=== PATIENT | male | born 1955 | race Caucasian/White ===

== ENCOUNTER → 2016-12-17 | Outpatient (CLI) | payer OTHER ==
--- NOTE | 2016-12-17 10:22 | MR ---
EXAMINATION TYPE: MR shoulder RT wo con DATE OF EXAM: 12/17/2016 10:07 AM COMPARISON: NONE HISTORY: Right shoulder pain TECHNIQUE: Multiplanar, multisequence imaging of the right shoulder is performed without contrast. FINDINGS: Rotator Cuff: Increased signal is present within the rotator cuff tendon compatible with tendinosis, no inder rotator cuff tear is evident, difficult to exclude a partial thickness tear along the hand bander ior margin, some fluid signal is present near the insertion. Fluid signal present in the subacromial subdeltoid bursa. Acromioclavicular Joint: Hypertrophic and degenerative change is present causing some mass effect on the musculotendinous junction of supraspinatus. Glenohumeral Joint: Some mild spurring is present at the humeral head. Subchondral geodes are present at the inferior bony labrum. Suspect some chondromalacia changes, grade 2 to grade 3. Labrum: There is a linear increased signal along the anterior labrum, superior labrum shows some diff use increased signal, cystic focus present along the anterior margin of the bony labrum inferiorly ma y represent a para labral cyst. Some heterogeneous signal is associated with a cystic focus. Biceps Tendon: Long head of biceps tendon shows fluid signal along its course. It shows a normal posi tion. Bone marrow signal: Otherwise unremarkable. Other: Distal acromial spur is suspected. IMPRESSION: Findings suspicious for labral tear. Partial thickness tear suspected along the posterior insertion o f the infraspinatus tendon. Correlate for impingement. Joint effusion. Possible para labral cyst, dif ficult to exclude small loose bodies.
== END | disposition home or self-care (01) ==
LOC: RADMRIMAIN 09:33
PROVIDERS: ATTEND Family Medicine
DX: M25.411 Effusion, right shoulder (principal)

== ENCOUNTER 2017-02-06 06:56 | Day surgery (SDC) | payer OTHER ==
[2017-02-03 16:59] VITALS: BMI 29.7
--- NOTE | 2017-02-05 16:18 | HP ---
DATE OF ADMISSION: Yury Knott is a 61-year-old patient seen with progressive right shoulder pain. After having treatment options discussed, he elected to proceed with the right shoulder arthroscopy. Consent was obtained. Medical clearance by Dr. Jean. Past medical history is hyperlipidemia, hypertension. Past surgical history is right total knee arthroplasty, left shoulder arthroscopy. DAILY MEDICATIONS: Amlodipine, lisinopril, metoprolol. ALLERGIES: None reported. SOCIAL HISTORY: Patient currently smokes cigarettes. PHYSICAL EVALUATION OF RIGHT SHOULDER: Flexion is 90 degrees, abduction 60 degrees, external rotation is 50 degrees with some pain and weakness. He has tenderness along the anterolateral acromion rotator cuff insertion. Impingement positive at 90 degrees. Drop arm sign positive. Distal neurovascular exam is intact. Radiographs of the right shoulder revealed a type II anterior acromion, cystic changes of the tuberosity. An MRI of the right shoulder revealed impingement and along with partial rotator cuff tear and labral tear. IMPRESSION: Right shoulder impingement with partial rotator cuff tear and labral tear. PLAN: Right shoulder arthroscopy, subacromial decompression, possible arthroscopic rotator cuff repair, and debridement.
[~2017-02-06 06:56] MED LIST: DEXAMETHASONE SOD PHOSPHATE 10 MG/ML 1 ML VIAL IV ONE; LACTATED RINGERS 1,000 ML IV SCH; LIDOCAINE 1% 20 ML VIAL (10MG/ML) FOR IV START INTRADERMA PRN; MIDAZOLAM 2 MG/2 ML VIAL IV PRN; ONDANSETRON 4 MG/2 ML VIAL IVP ONE; SCOPOLAMINE 1.5MG/72HR PATCH TRANSDERM ONE; ceFAZolin 2 GM in SODIUM CHLORIDE 0.9% 100 ML IVPB ONE
[2017-02-06 08:09] VITALS: RESP 16
[2017-02-06] MEDS ORDERED: ROPIVACAINE 5 MG/ML 30 ML VIAL ONE (09:13)
[2017-02-06] MEDS ORDERED: PROPOFOL 10 MG/ML 20 ML VIAL IV ONE (09:13)
[2017-02-06] MEDS ORDERED: SUCCINYLCHOLINE CHLORIDE 100 MG/5 ML SYR IV ONE (09:13)
[2017-02-06] MEDS ORDERED: LIDOCAINE 2%-EPI 1:100,000 20 ML VIAL ONE (09:13)
[2017-02-06] MEDS ORDERED: PHENYLEPHRINE-0.9% NACL SYG 1 MG/10 ML SYRINGE ONE (09:13)
[2017-02-06] MEDS ORDERED: LIDOCAINE 1% INJ 10MG/ML (20 ML MDV) ONE (09:13)
[2017-02-06] MEDS ORDERED: MIDAZOLAM 2 MG/2 ML VIAL ONE (09:13)
[2017-02-06] MEDS ORDERED: fentaNYL (PF) 50 MCG/ML 2 ML AMP ONE (09:13)
[2017-02-06] MEDS ORDERED: ePHEDrine 50 MG/ML 1 ML AMP ONE (09:13)
[2017-02-06] MEDS ORDERED: LACTATED RINGERS 1,000 ML IV ONE (10:38)
[2017-02-06 10:47] VITALS: TEMP 97.3
--- NOTE | 2017-02-06 10:50 | P.OP ---
Date of Procedure: 02/06/17 Preoperative Diagnosis: Right shoulder impingement Postoperative Diagnosis: 1. Right shoulder partial rotator cuff tear 2. Right shoulder impingement 3. Right shoulder partial biceps tendon tear 4. Right shoulder superficial labral tear 5. 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 Right shoulder arthroscopic debridement superficial rotator cuff tear 2. Right shoulder arthroscopic subacromial decompression 3. Right shoulder arthroscopic biceps tenotomy 4. Right shoulder arthroscopic debridement labral tear 5. Right shoulder arthroscopic chondroplasty humeral head and glenoid Anesthesia: GETA, regional (Interscalene block) Surgeon: Rivera Zelaya Animal Rides Manager #1: Aubrey Pichardo Estimated Blood Loss (ml): 10 Pathology: none sent Condition: stable Disposition: PACU Indications for Procedure: 61-year-old patient seen with progressive right shoulder pain. After treatment options were discussed, he elected to proceed with right shoulder arthroscopy. Operative Findings: See description of procedure Description of Procedure: Patient underwent a shoulder block by department of anesthesia. The patient was then taken to the operative suite. The patient underwent a general anesthetic by the department of anesthesia. The patient was placed into a lateral position and secured. There was appropriate padding of the bony prominence. Right shoulder was then prepped and draped in normal sterile orthopedic fashion. We placed the extremity in 10 pounds of longitudinal traction. A posterior incision was now made for a posterior working portal site. The trocar and cannula were inserted into the glenohumeral joint. Arthroscopy was initiated. Spinal needle was now inserted anteriorly, to ascertain the anterior working portal site. An incision was now made in that area, a trocar was inserted followed by a probe. There was diffuse grade 3 chondromalacia involving both the humeral head and glenoid fossa. There was superficial tearing of the superior and anterior labrum. There was partial tearing long head biceps tendon with hyperemia. No loose bodies. The posterior and inferior labrum were found to be intact. I performed an arthroscopic biceps tenotomy. I debrided the labral tear down to stable tissue. The residual labrum was probed and found to be stable. At this point I performed a chondroplasty of both the glenoid and humeral head utilizing a motorized shaver. The residual osteochondral surface was stable. We did note grade 3 and perhaps grade 4 areas of chondromalacia diffusely. Instruments were now removed from glenohumeral joint. Utilizing the posterior working portal site, the trocar and cannula were inserted into the subacromial space. Arthroscopy initiated. I made an incision 2 fingerbreadths lateral to the acromion. I introduced my trocar followed by my [employer] ablator. I now began ablating thick subacromial bursal tissue, which exposed the undersurface of the anterior acromion. This was diminished subacromial space. There was a very prominent anterior acromion. A motorized bur was introduced and a subacromial decompression was performed. I also excised some osteophytes off the inferior aspect of the distal clavicle. The AC joint was visualized and noted to be moderately arthritic. I did not think enough to warrant a Cecilia procedure. I turned my attention to the rotator cuff tendon. There was some fraying superficially along the distal supraspinatus area. I debrided that with a motorized shaver getting down to stable tissue. It probably involved about 30% of the superficial fibers. The remaining bring the remaining fibers were stable. There was no perforation. I injected 1 mL of Allogen into that debrided rotator cuff site as well as intra- articular. Instruments now removed from the portal sites. All portal sites were approximated with nylon suture. Sterile dressings were applied followed by a shoulder immobilizer. The patient was awakened, transferred to a bed, and taken to recovery in stable condition.
[2017-02-06] MEDS: HYDROmorphone 1 MG/ML 1 ML SYRINGE IVP PRN ×4 (11:49→12:05)
[2017-02-06] MEDS ORDERED: KETOROLAC 30 MG/ML 1 ML VIAL IVP ONE (12:00)
[2017-02-06] MEDS ORDERED: HYDROcodone/APAP 7.5-325MG 1 EACH TAB PO ONE (12:45)
[2017-02-06 13:37] VITALS: BP 96/72
[2017-02-06 13:39] VITALS: PULSE 97
== END 2017-02-06 14:00 | disposition home or self-care (01) ==
LOC: OR 06:56
PROVIDERS: ATTEND Orthopaedic Surgery
DX: M75.111 Incomplete rotator cuff tear or rupture of right shoulder, not specified as traumatic (principal); M75.41 Impingement syndrome of right shoulder; S46.111A Strain of muscle, fascia and tendon of long head of biceps, right arm, initial encounter; X58.XXXA Exposure to other specified factors, initial encounter; M94.211 Chondromalacia, right shoulder; M19.90 Unspecified osteoarthritis, unspecified site; E78.5 Hyperlipidemia, unspecified; I10 Essential (primary) hypertension; F17.210 Nicotine dependence, cigarettes, uncomplicated; M25.711 Osteophyte, right shoulder; Z79.899 Other long term (current) drug therapy
CPT/HCPCS: 64415; 29826; 29827; C1765; J2250; J1100; J0690; J2405; J2001; J3010; J1885; J1170; J2795; J2370; J0330; J2704

== ENCOUNTER → 2017-11-26 | Outpatient (CLI) | payer OTHER ==
--- NOTE | 2017-11-26 22:01 | MR ---
EXAMINATION TYPE: MR lumbar spine wo con DATE OF EXAM: 11/26/2017 COMPARISON: Prior lumbar MRI 10/12/2012 HISTORY: Radiculopathy, lumbar region TECHNIQUE: Multiplanar, multisequence images of the lumbar spine were acquired. L1-L2: Normal disc appearance without desiccation. No herniation, protrusion or disc bulging. No ca nal stenosis is present. Foramina are patent bilaterally. L2-L3: Circumferential posterior disc bulge causes mild anterior mass effect on the thecal sac. No si gnificant foraminal encroachment or central stenosis. L3-L4: Small central posterior disc bulge causes slight anterior mass effect on the thecal sac simila r to prior exam. Minimal anterolisthesis is present. Facet arthropathy with hypertrophy of the ligame ntum flavum encroaches on the lateral recesses, no significant central stenosis. L4-L5: Circumferential posterior disc bulge causes anterior mass effect on the thecal sac. Facet arth ropathy with hypertrophy of the ligamentum flavum results in a trefoil appearance of the thecal sac s imilar to prior exam, there is only mild spinal stenosis. No significant foraminal encroachment. L5-S1: Posterior extension of endplate disc complex shows a similar appearance, circumferential exten darya causes some right-sided foraminal encroachment, on the left suspect there is a lateral disc farzana iation encroaching on the neural foramen similar to prior. There is facet arthropathy change, hypertr ophic change or possibly small synovial cyst extends towards the left neural foramen. Lumbar segments are intact. No paraspinal masses are identified. Conus medullaris has a normal appe arance. Suspect an underlying scoliosis as on prior exam. Loss of disc height and signal is again not ed at L5-S1, there is associated vacuum phenomenon. Multilevel spondylosis is present, there is endpl ate discogenic marrow signal change. Loss of disc height and signal present at the intervertebral lev els is similar to prior exam, alignment is stable. Small cyst is associated with the left kidney. IMPRESSION: Degenerative disc disease, foraminal encroachment, facet arthropathy similar to prior exam as describ ed.
== END ==
LOC: RADMRIMAIN 20:08
PROVIDERS: ATTEND Physician Assistant
DX: M99.73 Connective tissue and disc stenosis of intervertebral foramina of lumbar region (principal); M51.16 Intervertebral disc disorders with radiculopathy, lumbar region; M46.86 Other specified inflammatory spondylopathies, lumbar region
CPT/HCPCS: 72148

== ENCOUNTER → 2022-09-16 | Outpatient (CLI) | payer MEDICARE, OTHER ==
--- NOTE | 2022-09-17 04:34 | MR ---
EXAMINATION TYPE: MR liver wo/w con DATE OF EXAM: 09/16/2022 COMPARISON: None HISTORY: Mass of liver. CONTRAST: Standard multiplanar, multisequence MRI departmental protocol images were obtained without contrast a nd with 7.5 mL intravenous Gadavist gadolinium contrast. There is a 6 cm sharply marginated rounded mass in the superior lateral right lobe of the liver. The mass has signal on the T2 images and there is some peripheral variable enhancement with the IV contra st. Central portions do not enhance. There is however delayed enhancement of some of the central comp onent. The spleen is intact. No evidence of pancreatic mass. Pancreatic duct appears normal. The bile ducts are not dilated. The remainder of the liver appears intact. The lung bases show no sign of pleural effusion. Heart size is normal. No sign of pericardial effusio n. Gallbladder is contracted. There is no adrenal mass. There is 1.5 Cm cortical cyst upper pole righ t kidney. No hydronephrosis. No sign of retroperitoneal adenopathy. There is normal enhancement of th e portal venous system. No ascites. IMPRESSION: Solitary sharply marginated mass in the liver with variable peripheral enhancement. There is some del ayed central enhancement on the 9 minute images. The appearance is nonspecific. I think that hemangio ma is possible but certainly malignant tumor is not excluded. This does not have the typical nodular peripheral enhancement of a hemangioma.
== END | disposition home or self-care (01) ==
LOC: RADMRIMAIN 14:13
PROVIDERS: ATTEND Internal Medicine Gastroenterology
DX: C22.0 Liver cell carcinoma (principal)
CPT/HCPCS: 74183; A9585